=== PATIENT | male | born 1940 | race Caucasian/White ===

== ENCOUNTER 2020-07-23 16:33 | Inpatient (IN) ==
[2020-07-23] MEDS ORDERED: ASPIRIN 325 MG TABLET PO STA (16:48)
[2020-07-23 18:55] LABS: Basophils # 0.1 10*3/uL (0.0-0.2); Basophils % 0.7 % (0.0-0.8); Eosinophils # 0.1 10*3/uL (0.0-0.87); Eosinophils % 0.8 % (0.00-10.9); Hematocrit 46.7 VOL% (42.0-52.0); Hemoglobin 15.4 GM/DL (14.0-18.0); Immature Granulocytes % 0.2 %; Immature Granulocytes Absolute 0.02 #; Lymphocytes # 2.2 10*3/uL (1.4-4.0); Lymphocytes % 26.2 % (21.2-54.2); Mean Corpuscular Volume 94.9 FL (87-102); Mean Platelet Volume 11.1 FL (9.6-12.0); Monocytes % 9.5 % (1.7-12.7); Neutrophils % 62.6 % (38.7-73.9); Platelet Count 213 T/CUMM (130-400); Red Blood Count 4.92 MC/CUMM (3.8-5.5); Red Cell Distribution Width 12.1 % (9.3-17.3); White Blood Count 8.4 T/CUMM (4-12)
[2020-07-23 19:08] LABS: Albumin 3.9 G/DL (3.4-5.0); Bilirubin,Total 0.6 MG/DL (0.2-1.0); Osmolality,Calculated 279.4 MOS/KG (273-304); Potassium 3.8 MMOL/L (3.5-5.1)
[2020-07-23] MEDS ORDERED: MORPHINE 4 MG/1 ML VIAL IV PRN (20:48)
[2020-07-23] MEDS ORDERED: ACETAMINOPHEN 325 MG TABLET PO PRN (20:48)
[2020-07-23] MEDS ORDERED: ONDANSETRON 4 MG/2 ML VIAL IV PRN (20:48)
[2020-07-23] MEDS ORDERED: DEXTROSE 50% 25 GM/50 ML VIAL IV PRN (20:48)
[2020-07-23] MEDS ORDERED: GLUCAGON 1 MG VIAL IM PRN (20:48)
[2020-07-23] MEDS ORDERED: hydrALAZINE 20 MG/1 ML VIAL IV PRN (20:48)
[2020-07-23] MEDS ORDERED: NITROGLYCERIN SL 0.4 MG TABLET SL PRN (20:57)
[2020-07-23] MEDS: ENOXAPARIN 40 MG/0.4 ML SYRINGE SUBCUT SCH (22:49)
[2020-07-23] MEDS: LOSARTAN 50 MG TABLET PO SCH (23:44)
[2020-07-24] MEDS: ROSUVASTATIN 10 MG TABLET PO SCH ×2 (00:36→21:18)
[2020-07-24 00:59] LABS: Basophils # 0.1 10*3/uL (0.0-0.2); Basophils % 0.9 % (0.0-0.8); Eosinophils # 0.1 10*3/uL (0.0-0.87); Eosinophils % 1.5 % (0.00-10.9); Hematocrit 45.7 VOL% (42.0-52.0); Hemoglobin 14.6 GM/DL (14.0-18.0); Immature Granulocytes % 0.4 %; Immature Granulocytes Absolute 0.03 #; Lymphocytes # 2.3 10*3/uL (1.4-4.0); Lymphocytes % 29.8 % (21.2-54.2); Mean Corpuscular HGB Conc 31.9 GM/DL (32-36); Mean Corpuscular Volume 97.2 FL (87-102); Mean Platelet Volume 10.7 FL (9.6-12.0); Monocytes % 10.9 % (1.7-12.7); Neutrophils % 56.5 % (38.7-73.9); Platelet Count 186 T/CUMM (130-400); Red Cell Distribution Width 12.3 % (9.3-17.3); White Blood Count 7.6 T/CUMM (4-12)
[2020-07-24 01:11] LABS: Albumin 3.7 G/DL (3.4-5.0); Bilirubin,Total 0.7 MG/DL (0.2-1.0); Calcium 8.8 MG/DL (8.5-10.1); Osmolality,Calculated 279.4 MOS/KG (273-304); Potassium 4.1 MMOL/L (3.5-5.1); Risk Ratio 4.81; Total Protein 6.4 G/DL (6.4-8.3)
[2020-07-24] MEDS: LOSARTAN 50 MG TABLET PO SCH ×2 (09:34→21:12)
[2020-07-24] MEDS: PANTOPRAZOLE 40 MG TABLET PO SCH (09:34)
[2020-07-24] MEDS: hydroCHLOROthiazide 25 MG TABLET PO SCH (09:35)
[2020-07-24] MEDS: ASPIRIN CHEW 81 MG TABLET PO SCH (09:35)
[2020-07-24] MEDS: LEVOTHYROXINE 175 MCG TABLET PO SCH (09:35)
[2020-07-24] MEDS: NITROGLYCERIN 2% OINT 1 INCH/GM PACK TOP SCH ×2 (11:15→18:35)
[2020-07-24 12:06] LABS: Troponin I < 0.015 NG/ML (0.00-0.045)
[2020-07-24] MEDS ORDERED: POTASSIUM CHLORIDE RIDER 10 MEQ in PREMIX 1 EACH IV PRN (16:35)
[2020-07-24] MEDS ORDERED: MAGNESIUM SULF RIDER 2 GM in PREMIX 1 EACH IV PRN (16:35)
[2020-07-24] MEDS: ENOXAPARIN 40 MG/0.4 ML SYRINGE SUBCUT SCH (21:18)
[2020-07-25] MEDS: NITROGLYCERIN 2% OINT 1 INCH/GM PACK TOP SCH ×5 (00:03→23:20)
[2020-07-25 05:07] LABS: Basophils # 0.1 10*3/uL (0.0-0.2); Basophils % 0.9 % (0.0-0.8); Eosinophils # 0.1 10*3/uL (0.0-0.87); Eosinophils % 1.6 % (0.00-10.9); Hematocrit 44.4 VOL% (42.0-52.0); Immature Granulocytes % 0.3 %; Immature Granulocytes Absolute 0.02 #; Lymphocytes # 2.2 10*3/uL (1.4-4.0); Lymphocytes % 34.2 % (21.2-54.2); Mean Corpuscular HGB Conc 33.8 GM/DL (32-36); Mean Corpuscular Volume 92.9 FL (87-102); Platelet Count 178 T/CUMM (130-400); Red Blood Count 4.78 MC/CUMM (3.8-5.5); Red Cell Distribution Width 12.2 % (9.3-17.3); White Blood Count 6.4 T/CUMM (4-12)
[2020-07-25 05:20] LABS: Calcium 9.2 MG/DL (8.5-10.1); Osmolality,Calculated 277.7 MOS/KG (273-304); Potassium 3.9 MMOL/L (3.5-5.1)
[2020-07-25 05:28] LABS: Troponin I < 0.015 NG/ML (0.00-0.045)
[2020-07-25] MEDS: SODIUM CHLORIDE 0.9% 1,000 ML IV SCH ×2 (05:40→17:38)
[2020-07-25] MEDS: hydroCHLOROthiazide 25 MG TABLET PO SCH (09:26)
[2020-07-25] MEDS: LOSARTAN 50 MG TABLET PO SCH ×2 (09:26→21:16)
[2020-07-25] MEDS: PANTOPRAZOLE 40 MG TABLET PO SCH (09:26)
[2020-07-25] MEDS: ASPIRIN CHEW 81 MG TABLET PO SCH (09:26)
[2020-07-25] MEDS: LEVOTHYROXINE 175 MCG TABLET PO SCH (09:26)
[2020-07-25] MEDS ORDERED: DIAZEPAM 5 MG TABLET PO ONE (14:07)
[2020-07-25] MEDS ORDERED: diphenhydrAMINE CAP 25 MG CAPSULE PO ONE (14:07)
[2020-07-25] MEDS ORDERED: ASPIRIN CHEW 81 MG TABLET PO ONE (20:52)
[2020-07-25] MEDS ORDERED: POTASSIUM CHLORIDE RIDER 10 MEQ in PREMIX 1 EACH IV PRN (20:52)
[2020-07-25] MEDS ORDERED: MAGNESIUM SULF RIDER 2 GM in PREMIX 1 EACH IV PRN (20:52)
[2020-07-25] MEDS: ENOXAPARIN 40 MG/0.4 ML SYRINGE SUBCUT SCH (21:16)
[2020-07-25] MEDS: ROSUVASTATIN 10 MG TABLET PO SCH (21:16)
[2020-07-26] MEDS: SODIUM CHLORIDE 0.9% 1,000 ML IV SCH (01:19)
[2020-07-26] MEDS: NITROGLYCERIN 2% OINT 1 INCH/GM PACK TOP SCH ×3 (05:05→17:27)
[2020-07-26 05:12] LABS: Basophils # 0.1 10*3/uL (0.0-0.2); Basophils % 0.8 % (0.0-0.8); Eosinophils # 0.1 10*3/uL (0.0-0.87); Eosinophils % 1.7 % (0.00-10.9); Hematocrit 43.2 VOL% (42.0-52.0); Hemoglobin 14.7 GM/DL (14.0-18.0); Immature Granulocytes % 0.3 %; Immature Granulocytes Absolute 0.02 #; Lymphocytes # 2.3 10*3/uL (1.4-4.0); Lymphocytes % 35.5 % (21.2-54.2); Mean Corpuscular Volume 92.1 FL (87-102); Mean Platelet Volume 11.3 FL (9.6-12.0); Monocytes % 11.9 % (1.7-12.7); Neutrophils % 49.8 % (38.7-73.9); Platelet Count 171 T/CUMM (130-400); Red Blood Count 4.69 MC/CUMM (3.8-5.5); Red Cell Distribution Width 12.3 % (9.3-17.3); White Blood Count 6.4 T/CUMM (4-12)
[2020-07-26 05:29] LABS: Osmolality,Calculated 277.5 MOS/KG (273-304); Potassium 3.9 MMOL/L (3.5-5.1)
[2020-07-26] MEDS ORDERED: diphenhydrAMINE CAP 25 MG CAPSULE ONE (08:53)
[2020-07-26] MEDS ORDERED: DIAZEPAM 5 MG TABLET ONE (08:54)
[2020-07-26] MEDS: LEVOTHYROXINE 175 MCG TABLET PO SCH (08:57)
[2020-07-26] MEDS: ASPIRIN CHEW 81 MG TABLET PO SCH (08:57)
[2020-07-26] MEDS: LOSARTAN 50 MG TABLET PO SCH (08:57)
[2020-07-26] MEDS: PANTOPRAZOLE 40 MG TABLET PO SCH (08:57)
[2020-07-26] MEDS: hydroCHLOROthiazide 25 MG TABLET PO SCH (08:57)
[2020-07-26] MEDS ORDERED: diphenhydrAMINE CAP 25 MG CAPSULE PO ONE (09:00)
[2020-07-26] MEDS ORDERED: DIAZEPAM 5 MG TABLET PO ONE (09:00)
[2020-07-26] MEDS ORDERED: MIDAZOLAM 2 MG/2 ML VIAL ONE (09:54)
[2020-07-26] MEDS ORDERED: LIDOCAINE 1% 20 ML VIAL ONE (09:54)
[2020-07-26] MEDS ORDERED: fentaNYL 100 MCG/2 ML VIAL ONE (09:55)
[2020-07-26] MEDS ORDERED: HEPARIN 5,000 UNIT/1 ML VIAL ONE (10:25)
[2020-07-26] MEDS: ENOXAPARIN 40 MG/0.4 ML SYRINGE SUBCUT SCH (14:52)
[2020-07-26] MEDS: amLODIPine 2.5 MG TABLET PO SCH ×2 (14:52→20:10)
[2020-07-26] MEDS: ROSUVASTATIN 10 MG TABLET PO SCH (20:10)
[2020-07-27] MEDS: NITROGLYCERIN 2% OINT 1 INCH/GM PACK TOP SCH ×3 (00:51→13:42)
[2020-07-27 05:12] LABS: Basophils # 0.1 10*3/uL (0.0-0.2); Basophils % 0.8 % (0.0-0.8); Eosinophils # 0.1 10*3/uL (0.0-0.87); Eosinophils % 1.3 % (0.00-10.9); Hematocrit 43.5 VOL% (42.0-52.0); Hemoglobin 14.8 GM/DL (14.0-18.0); Immature Granulocytes % 0.3 %; Immature Granulocytes Absolute 0.02 #; Lymphocytes # 1.9 10*3/uL (1.4-4.0); Lymphocytes % 26.8 % (21.2-54.2); Mean Corpuscular Volume 92.2 FL (87-102); Mean Platelet Volume 11.1 FL (9.6-12.0); Monocytes % 11.6 % (1.7-12.7); Neutrophils % 59.2 % (38.7-73.9); Platelet Count 152 T/CUMM (130-400); Red Blood Count 4.72 MC/CUMM (3.8-5.5); Red Cell Distribution Width 12.1 % (9.3-17.3); White Blood Count 7.1 T/CUMM (4-12)
[2020-07-27 05:38] LABS: Calcium 8.8 MG/DL (8.5-10.1); Osmolality,Calculated 278.5 MOS/KG (273-304); Potassium 3.8 MMOL/L (3.5-5.1)
[2020-07-27] MEDS: LEVOTHYROXINE 175 MCG TABLET PO SCH (09:39)
[2020-07-27] MEDS: amLODIPine 2.5 MG TABLET PO SCH (09:39)
[2020-07-27] MEDS: ASPIRIN CHEW 81 MG TABLET PO SCH (09:39)
[2020-07-27] MEDS: hydroCHLOROthiazide 25 MG TABLET PO SCH (09:39)
[2020-07-27] MEDS: PANTOPRAZOLE 40 MG TABLET PO SCH (09:39)
[2020-07-27 12:18] VITALS: BP 164/81
[2020-07-27] MEDS ORDERED: ENOXAPARIN 40 MG/0.4 ML SYRINGE SUBCUT SCH (14:00)
[2020-07-27] MEDS ORDERED: VENLAFAXINE 75 MG TABLET PO SCH (14:16)
[2020-07-27] MEDS: ENOXAPARIN 40 MG/0.4 ML SYRINGE SUBCUT SCH (14:28)
== END 2020-07-27 15:29 | disposition home or self-care, planned readmission (81) | DRG 287 ==
LOC: N.EDINP 16:33 → N.ED 16:33 → SUATTDRO 20:48 → N.TELES 23:50 → SUATTDRO 07-25 14:25
PROVIDERS: ADMIT Emergency Medicine; ATTEND Family Medicine

== ENCOUNTER 2020-08-02 09:00 | Inpatient (IN) ==
[2020-08-21] MEDS ORDERED: GLUCAGON 1 MG VIAL IM PRN (07:19)
[2020-08-21] MEDS ORDERED: DEXTROSE 50% 25 GM/50 ML VIAL IV PRN (07:19)
[2020-08-21] MEDS ORDERED: SODIUM CHLORIDE 0.9% 1,000 ML IV SCH (07:30)
[2020-08-21] MEDS ORDERED: CLORAZEPATE 3.75 MG TABLET PO PRN (08:47)
[2020-08-21] MEDS ORDERED: ZALEPLON 5 MG CAPSULE PO PRN (08:48)
[2020-08-21] MEDS ORDERED: NITROGLYCERIN SL 0.4 MG TABLET SL PRN (09:15)
[2020-08-21] MEDS ORDERED: MORPHINE 4 MG/1 ML VIAL IV PRN (09:15)
[2020-08-21 10:09] LABS: ABG Base Excess 1.1 MMOL/L (-2.5-2.5); ABG HCO3 25.4 MMOL/L (20-26); ABG Oxygen Saturation 98.8 % (95-100); ABG PCO2 37.3 MM HG (35-48); ABG PH 7.435 (7.35-7.45); ABG TCO2 21.1 MMOL/L (23-27); Pt O2 Delivery Device Room Air
[2020-08-21 10:46] LABS: Basophils # 0.1 10*3/uL (0.0-0.2); Basophils % 0.7 % (0.0-0.8); Eosinophils # 0.1 10*3/uL (0.0-0.87); Eosinophils % 1.3 % (0.00-10.9); Hematocrit 44.6 VOL% (42.0-52.0); Hemoglobin 14.9 GM/DL (14.0-18.0); Immature Granulocytes % 0.3 %; Immature Granulocytes Absolute 0.02 #; Lymphocytes # 1.8 10*3/uL (1.4-4.0); Mean Corpuscular HGB Conc 33.4 GM/DL (32-36); Mean Corpuscular Volume 92.3 FL (87-102); Monocytes % 9.3 % (1.7-12.7); Neutrophils % 64.4 % (38.7-73.9); Platelet Count 190 T/CUMM (130-400); Red Blood Count 4.83 MC/CUMM (3.8-5.5); Red Cell Distribution Width 12.3 % (9.3-17.3); White Blood Count 7.5 T/CUMM (4-12)
[2020-08-21] MEDS: CHLORHEXIDINE 4% SOLN 118 ML BOTTLE TOP SCH ×3 (10:48→22:55)
[2020-08-21 11:04] LABS: Albumin 3.8 G/DL (3.4-5.0); Bilirubin,Total 1.2 MG/DL (0.2-1.0); Calcium 9.2 MG/DL (8.5-10.1); Osmolality,Calculated 277.7 MOS/KG (273-304); Potassium 3.6 MMOL/L (3.5-5.1)
[2020-08-21] MEDS: CHLORHEXIDINE 0.12% ORAL RINSE 60 ML BOTTLE SWISH/SPIT SCH ×2 (18:44→22:55)
[2020-08-22] MEDS ORDERED: PAPAVERINE 60 MG/2 ML VIAL ONE (04:22)
[2020-08-22] MEDS ORDERED: VANCOMYCIN 1,000 MG VIAL ONE (04:22)
[2020-08-22] MEDS ORDERED: VANCOMYCIN 500 MG VIAL ONE (04:22)
[2020-08-22] MEDS ORDERED: CEFUROXIME INJ 1,500 MG in SYRINGE 1 EACH IV ONE (05:00)
[2020-08-22] MEDS ORDERED: FAMOTIDINE 20 MG TABLET PO ONE (06:00)
[2020-08-22] MEDS ORDERED: DIAZEPAM 5 MG TABLET PO ONE (06:00)
[2020-08-22] MEDS ORDERED: HEPARIN/NACL 0.9% 2 UNITS/ML 500 ML IV ONE ×2 (06:04→15:34)
[2020-08-22] MEDS ORDERED: SEVOFLURANE 1 UNIT/15 MINUTE INH ONE (06:04)
[2020-08-22] MEDS ORDERED: SODIUM CHLORIDE 0.9% 1,000 ML IV ONE ×2 (06:08→10:47)
[2020-08-22] MEDS ORDERED: LACTATED RINGERS 1,000 ML IV ONE (06:08)
[2020-08-22] MEDS ORDERED: LIDOCAINE 2% 5 ML VIAL ONE ×3 (06:11→11:12)
[2020-08-22] MEDS ORDERED: CALCIUM CHLORIDE 1,000 MG/10 ML VIAL IV ONE ×2 (06:13→11:04)
[2020-08-22] MEDS ORDERED: VECURONIUM 10 MG VIAL IV ONE ×4 (06:13→08:38)
[2020-08-22] MEDS ORDERED: PHENYLEPHRINE DRIP 20 MG/250 ML PREMIX IV ONE (06:14)
[2020-08-22] MEDS ORDERED: AMINOCAPROIC ACID 5,000 MG/20 ML VIAL ONE ×8 (06:15→06:22)
[2020-08-22] MEDS ORDERED: SODIUM CHLORIDE 0.9% 250 ML IV ONE (06:16)
[2020-08-22] MEDS ORDERED: ETOMIDATE 40 MG/20 ML VIAL IV ONE (06:16)
[2020-08-22] MEDS ORDERED: MIDAZOLAM 10 MG/2 ML VIAL ONE ×4 (06:21→08:38)
[2020-08-22] MEDS ORDERED: SUFentanil 250 MCG/5 ML AMP ONE ×3 (06:21→10:42)
[2020-08-22] MEDS ORDERED: MINERAL OIL/PETROLATUM OPH OINT 3.5 GM TUBE ONE (06:25)
[2020-08-22] MEDS ORDERED: ePHEDrine 50 MG/ML VIAL ONE (07:01)
[2020-08-22] MEDS ORDERED: SODIUM BICARBONATE 50 MEQ/50 ML VIAL IV ONE ×2 (07:18→10:37)
[2020-08-22] MEDS ORDERED: POTASSIUM CHLORIDE RIDER 100 ML IV ONE (07:19)
[2020-08-22] MEDS ORDERED: NITROPRUSSIDE 50 MG/2 ML VIAL ONE (07:19)
[2020-08-22] MEDS ORDERED: PHENYLEPHRINE DRIP 40 MG/250 ML PREMIX IV ONE (07:19)
[2020-08-22] MEDS ORDERED: CALCIUM CHLORIDE 1,000 MG/10 ML SYRINGE IV ONE (07:19)
[2020-08-22] MEDS: CEFUROXIME INJ 1,500 MG in SYRINGE 1 EACH IV SCH ×2 (07:22→18:14)
[2020-08-22 07:30] LABS: ABG Base Excess 0.6 MMOL/L (-2.5-2.5); ABG PCO2 40.1 MM HG (35-48); ABG PH 7.408 (7.35-7.45); ABG TCO2 21.9 MMOL/L (23-27); Glucose Heart Surgery 116 MG/DL (74-106); Hematocrit Heart Surgery 41.7 PERCENT (42-52); Hemoglobin Heart Surgery 13.6 G/DL (14.0-18.0); Ionized Calcium Arterial 1.23 MMOL/L (1.21-1.46); PCO2 Patient Temp Arterial 40.1 MMHG; PH Patient Temp Arterial 7.408; Patient Temperature 37 CELCIUS; Potassium Heart/CVR 3.5 MMOL/L (3.5-5.1); Sodium Heart/CVR 140 MMOL/L (135-145)
[2020-08-22 07:42] LABS: Bilirubin,Urine Negative (Negative); Blood, Urine Negative (Negative); Glucose,Urine (UA) Negative (Negative); Ketones,Urine Negative (Negative); Mucus,Urine Occasional /LPF (Occasional); Nitrite,Urine Negative (Negative); Protein,Urine Negative; RBC,Urine 1 /HPF (0-4); Squamous Epithelial Cell,Urine Occasional /HPF (0-10); Urine Appearance CLEAR (Clear); Urine Color Yellow (Yellow); Urine Specific Gravity 1.011 (1.001-1.035); Urine Urobilinogen < 2.0 EU/DL (0.2-1.0); WBC,Urine <1 /HPF (0-6)
[2020-08-22] MEDS ORDERED: NITROGLYCERIN DRIP 50 MG/250 ML BOTTLE IV ONE ×2 (08:16→11:31)
[2020-08-22] MEDS ORDERED: diphenhydrAMINE 50 MG/1 ML VIAL ONE (08:38)
[2020-08-22 08:49] LABS: Hematocrit Heart Surgery 30.8 PERCENT (42-52); PH Patient Temp Venous 7.456; PO2 Patient Temp Venous 40.2 MM HG; Potassium Heart/CVR 4.1 MMOL/L (3.5-5.1); VBG Base Excess 0.5 MEQ/L (0-4); VBG HCO3 24.7 MEQ/L (24-28); VBG Oxygen Saturation 85.3 %; VBG PCO2 39.3 MMHG (41-51); VBG PH 7.412; VBG PO2 49.4 MMHG (17-40); VBG Total CO2 22.8 MMOL/L
[2020-08-22 09:25] LABS: Hemoglobin Heart Surgery 10.4 G/DL (14.0-18.0); PCO2 Patient Temp Venous 35.8 MM HG; PH Patient Temp Venous 7.432; PO2 Patient Temp Venous 41.1 MM HG; VBG HCO3 24.2 MEQ/L (24-28); VBG Oxygen Saturation 84.9 %; VBG PCO2 41.4 MMHG (41-51); VBG PH 7.389; VBG PO2 50.5 MMHG (17-40); VBG Total CO2 22.7 MMOL/L
[2020-08-22] MEDS ORDERED: FAMOTIDINE 20 MG/2 ML VIAL IV ONE (09:48)
[2020-08-22 09:53] LABS: Hematocrit Heart Surgery 33.7 PERCENT (42-52); Hemoglobin Heart Surgery 10.9 G/DL (14.0-18.0); PCO2 Patient Temp Venous 35.4 MM HG; PH Patient Temp Venous 7.434; PO2 Patient Temp Venous 43.1 MM HG; Potassium Heart/CVR 3.9 MMOL/L (3.5-5.1); VBG Base Excess -0.2 MEQ/L (0-4); VBG HCO3 24.1 MEQ/L (24-28); VBG Oxygen Saturation 86.5 %; VBG PCO2 40.9 MMHG (41-51); VBG PH 7.39; VBG PO2 52.9 MMHG (17-40); VBG Total CO2 22.3 MMOL/L
[2020-08-22] MEDS ORDERED: THROMBIN TOPICAL (RECOMBINANT) 5,000 UNIT VIAL TOP ONE (10:19)
[2020-08-22] MEDS ORDERED: AMIODARONE 150 MG/3 ML VIAL ONE ×2 (10:26→10:27)
[2020-08-22] MEDS ORDERED: ALBUMIN 25% 25 GM/100 ML VIAL IV ONE (10:35)
[2020-08-22] MEDS ORDERED: methylPREDNISolone SOD SUC 1,000 MG/8 ML VIAL ONE (10:36)
[2020-08-22] MEDS ORDERED: MAGNESIUM SULFATE 5 GM/10 ML VIAL IV ONE (10:36)
[2020-08-22] MEDS ORDERED: DEXTROSE 5% KCL 20 MEQ 20 MEQ/1,000 ML BAG IV ONE (10:36)
[2020-08-22] MEDS ORDERED: PROTAMINE SULFATE 250 MG/25 ML VIAL IV ONE (10:36)
[2020-08-22] MEDS ORDERED: HEPARIN 10,000 UNIT/10 ML VIAL ONE (10:36)
[2020-08-22] MEDS ORDERED: MANNITOL 100 GM/500 ML BAG IV ONE (10:36)
[2020-08-22] MEDS ORDERED: PROTAMINE SULFATE 50 MG/5 ML VIAL IV ONE (10:37)
[2020-08-22 10:51] LABS: ABG Base Excess -1.9 MMOL/L (-2.5-2.5); ABG HCO3 22.9 MMOL/L (20-26); ABG PCO2 35.1 MM HG (35-48); ABG PH 7.409 (7.35-7.45); ABG TCO2 19.8 MMOL/L (23-27); Glucose Heart Surgery 198 MG/DL (74-106); Hematocrit Heart Surgery 34.8 PERCENT (42-52); Hemoglobin Heart Surgery 11.3 G/DL (14.0-18.0); PCO2 Patient Temp Arterial 35.1 MMHG; PH Patient Temp Arterial 7.409; Patient Temperature 37 CELCIUS; Potassium Heart/CVR 3.2 MMOL/L (3.5-5.1); Sodium Heart/CVR 136 MMOL/L (135-145)
[2020-08-22] MEDS ORDERED: MIDAZOLAM 2 MG/2 ML VIAL IV PRN (11:45)
[2020-08-22] MEDS: SODIUM CHLORIDE 0.45% 1,000 ML IV SCH ×2 (11:45)
[2020-08-22] MEDS ORDERED: CALCIUM CHLORIDE 1,000 MG/10 ML SYRINGE IV PRN (11:45)
[2020-08-22] MEDS ORDERED: MORPHINE 10 MG/1 ML VIAL IV PRN (11:45)
[2020-08-22] MEDS ORDERED: VECURONIUM 10 MG VIAL IV PRN ×2 (11:45)
[2020-08-22] MEDS ORDERED: ONDANSETRON 4 MG/2 ML VIAL IV PRN (11:45)
[2020-08-22] MEDS ORDERED: CHLORHEXIDINE 4% SOLN 118 ML BOTTLE TOP PRN (11:45)
[2020-08-22] MEDS ORDERED: MIDAZOLAM 10 MG/2 ML VIAL IV PRN (11:45)
[2020-08-22] MEDS ORDERED: NITROPRUSSIDE 100 MG in DEXTROSE 5% 250 ML IV PRN (11:45)
[2020-08-22] MEDS ORDERED: MAGNESIUM SULF RIDER 4 GM in PREMIX 1 EACH IV PRN (11:45)
[2020-08-22] MEDS ORDERED: MAGNESIUM SULF RIDER 2 GM in PREMIX 1 EACH IV PRN (11:45)
[2020-08-22] MEDS ORDERED: PHENYLEPHRINE DRIP 40 MG/250 ML PREMIX IV PRN (11:45)
[2020-08-22] MEDS ORDERED: INSULIN REGULAR 100 UNIT/ML IV ONE (11:45)
[2020-08-22] MEDS ORDERED: DEXTROSE 50% 25 GM/50 ML VIAL IV PRN ×2 (11:45)
[2020-08-22] MEDS ORDERED: MORPHINE 4 MG/1 ML VIAL IV PRN (11:45)
[2020-08-22] MEDS ORDERED: ACETAMINOPHEN 650 MG SUPP RECTAL PRN (11:45)
[2020-08-22] MEDS ORDERED: NITROGLYCERIN DRIP 50 MG/250 ML BOTTLE IV PRN (12:21)
[2020-08-22 12:22] LABS: Basophils % 0.3 % (0.0-0.8); Eosinophils % 0.1 % (0.00-10.9); Hematocrit 36.8 VOL% (42.0-52.0); Hemoglobin 11.9 GM/DL (14.0-18.0); Immature Granulocytes % 0.6 %; Immature Granulocytes Absolute 0.09 #; Lymphocytes # 0.5 10*3/uL (1.4-4.0); Lymphocytes % 3.3 % (21.2-54.2); Mean Corpuscular HGB Conc 32.3 GM/DL (32-36); Mean Corpuscular Volume 95.1 FL (87-102); Mean Platelet Volume 11.2 FL (9.6-12.0); Monocytes % 5.6 % (1.7-12.7); Neutrophils % 90.1 % (38.7-73.9); Platelet Count 138 T/CUMM (130-400); Red Blood Count 3.87 MC/CUMM (3.8-5.5); Red Cell Distribution Width 12.5 % (9.3-17.3); White Blood Count 15.7 T/CUMM (4-12)
[2020-08-22 12:24] LABS: ABG Base Excess -2.5 MMOL/L (-2.5-2.5); ABG HCO3 22.4 MMOL/L (20-26); ABG Oxygen Saturation 99.7 % (95-100); ABG PCO2 35.7 MM HG (35-48); ABG PH 7.394 (7.35-7.45); ABG TCO2 19.3 MMOL/L (23-27); Glucose Heart Surgery 169 MG/DL (74-106); Hematocrit Heart Surgery 37.6 PERCENT (42-52); Hemoglobin Heart Surgery 12.2 G/DL (14.0-18.0); Potassium Heart/CVR 3.2 MMOL/L (3.5-5.1)
[2020-08-22] MEDS: POTASSIUM CHLORIDE RIDER 20 MEQ in PREMIX 1 EACH IV PRN ×6 (12:30→23:45)
[2020-08-22 12:37] LABS: INR 1.3; PT Patient Result 13.9 SECS (9.8-11.9); Partial Thromboplastin Time 31.3 SECS (23.9-33.8)
[2020-08-22 12:49] LABS: CKMB % 6.1 %
[2020-08-22 12:50] LABS: Albumin 3.1 G/DL (3.4-5.0); Calcium 8.9 MG/DL (8.5-10.1); Osmolality,Calculated 291.7 MOS/KG (273-304); Potassium 3.3 MMOL/L (3.5-5.1); Total Protein 5.1 G/DL (6.4-8.3)
[2020-08-22 12:53] LABS: Troponin I 5.65 NG/ML (0.00-0.045)
[2020-08-22 12:54] LABS: Band Neutrophils 6 % (0-10); Hypochromasia Slight; Lymphocytes 2 % (20-55); Platelet Estimate Adequate; Segmented Neutrophils 90 % (50-85); Total Cells Counted 100
[2020-08-22] MEDS: INSULIN REGULAR DRIP 100 ML IV SCH (13:06)
[2020-08-22] MEDS: CHLORHEXIDINE 0.12% ORAL RINSE 60 ML BOTTLE SWISH/SPIT SCH ×2 (13:09→21:36)
[2020-08-22] MEDS: LACTATED RINGERS 250 ML IV PRN ×6 (14:12→21:15)
[2020-08-22] MEDS: ALBUMIN 5% 12.5 GM in PREMIX 1 EACH IV PRN ×3 (14:14→20:20)
[2020-08-22 15:10] LABS: ABG Base Excess -2.1 MMOL/L (-2.5-2.5); ABG HCO3 22.7 MMOL/L (20-26); ABG PCO2 32.4 MM HG (35-48); ABG PH 7.428 (7.35-7.45); Glucose Heart Surgery 192 MG/DL (74-106); Hematocrit Heart Surgery 36.7 PERCENT (42-52); Hemoglobin Heart Surgery 11.9 G/DL (14.0-18.0); Potassium Heart/CVR 3.4 MMOL/L (3.5-5.1)
[2020-08-22 17:20] LABS: ABG Base Excess -3.5 MMOL/L (-2.5-2.5); ABG HCO3 21.5 MMOL/L (20-26); ABG Oxygen Saturation 99.6 % (95-100); ABG PCO2 40.4 MM HG (35-48); ABG PH 7.343 (7.35-7.45); ABG TCO2 19.7 MMOL/L (23-27); Glucose Heart Surgery 198 MG/DL (74-106); Hematocrit Heart Surgery 35.7 PERCENT (42-52); Hemoglobin Heart Surgery 11.6 G/DL (14.0-18.0); Potassium Heart/CVR 3.8 MMOL/L (3.5-5.1)
[2020-08-22] MEDS: KETOROLAC 30 MG/1 ML VIAL IV SCH ×2 (18:16→23:45)
[2020-08-22] MEDS: POTASSIUM CHLORIDE RIDER 10 MEQ in PREMIX 1 EACH IV PRN (18:17)
[2020-08-22] MEDS ORDERED: FUROSEMIDE 40 MG/4 ML VIAL IV PRN (18:24)
[2020-08-22] MEDS ORDERED: DEXMEDETOMIDINE 200 MCG in SODIUM CHLORIDE 0.9% 48 ML IV PRN (19:22)
[2020-08-22 20:10] LABS: ABG Base Excess -4.8 MMOL/L (-2.5-2.5); ABG HCO3 20.5 MMOL/L (20-26); ABG Oxygen Saturation 99.5 % (95-100); ABG PCO2 40.7 MM HG (35-48); ABG PH 7.321 (7.35-7.45); ABG TCO2 18.9 MMOL/L (23-27); Glucose Heart Surgery 186 MG/DL (74-106); Hematocrit Heart Surgery 35.7 PERCENT (42-52); Hemoglobin Heart Surgery 11.6 G/DL (14.0-18.0); Potassium Heart/CVR 4.1 MMOL/L (3.5-5.1)
[2020-08-22 20:35] LABS: CKMB % 5.9 %
[2020-08-22 20:40] LABS: Troponin I 5.57 NG/ML (0.00-0.045)
[2020-08-22 23:30] LABS: ABG Base Excess -5.3 MMOL/L (-2.5-2.5); ABG Oxygen Saturation 98.9 % (95-100); ABG PCO2 40.9 MM HG (35-48); ABG PH 7.311 (7.35-7.45); ABG TCO2 18.7 MMOL/L (23-27); Glucose Heart Surgery 172 MG/DL (74-106); Hematocrit Heart Surgery 33.6 PERCENT (42-52); Hemoglobin Heart Surgery 10.9 G/DL (14.0-18.0); Potassium Heart/CVR 4.1 MMOL/L (3.5-5.1)
[2020-08-22] MEDS: INSULIN REGULAR 100 UNIT/ML IV PRN (23:55)
[2020-08-23 01:58] LABS: ABG Base Excess -4.1 MMOL/L (-2.5-2.5); ABG HCO3 21.1 MMOL/L (20-26); ABG Oxygen Saturation 99.3 % (95-100); ABG PH 7.352 (7.35-7.45); ABG TCO2 19.1 MMOL/L (23-27); Glucose Heart Surgery 151 MG/DL (74-106); Hematocrit Heart Surgery 33.1 PERCENT (42-52); Hemoglobin Heart Surgery 10.7 G/DL (14.0-18.0); Potassium Heart/CVR 4.3 MMOL/L (3.5-5.1)
[2020-08-23] MEDS: INSULIN REGULAR 100 UNIT/ML IV PRN (02:06)
[2020-08-23 02:39] LABS: ABG Base Excess -2.5 MMOL/L (-2.5-2.5); ABG HCO3 22.4 MMOL/L (20-26); ABG Oxygen Saturation 99.6 % (95-100); ABG PCO2 36.3 MM HG (35-48); ABG TCO2 19.7 MMOL/L (23-27); Glucose Heart Surgery 144 MG/DL (74-106); Hematocrit Heart Surgery 34.5 PERCENT (42-52); Hemoglobin Heart Surgery 11.2 G/DL (14.0-18.0)
[2020-08-23 03:19] LABS: ABG Base Excess -2.3 MMOL/L (-2.5-2.5); ABG HCO3 22.5 MMOL/L (20-26); ABG Oxygen Saturation 99.6 % (95-100); ABG PCO2 32.1 MM HG (35-48); ABG PH 7.429 (7.35-7.45); ABG TCO2 18.9 MMOL/L (23-27); Glucose Heart Surgery 133 MG/DL (74-106); Hemoglobin Heart Surgery 11.4 G/DL (14.0-18.0); Potassium Heart/CVR 3.7 MMOL/L (3.5-5.1)
[2020-08-23 03:20] LABS: Basophils % 0.1 % (0.0-0.8); Hematocrit 33.3 VOL% (42.0-52.0); Hemoglobin 11.1 GM/DL (14.0-18.0); Immature Granulocytes % 0.7 %; Immature Granulocytes Absolute 0.12 #; Lymphocytes # 1.1 10*3/uL (1.4-4.0); Lymphocytes % 6.6 % (21.2-54.2); Mean Corpuscular HGB Conc 33.3 GM/DL (32-36); Mean Corpuscular Volume 93.3 FL (87-102); Mean Platelet Volume 11.7 FL (9.6-12.0); Monocytes % 4.8 % (1.7-12.7); Neutrophils % 87.8 % (38.7-73.9); Platelet Count 137 T/CUMM (130-400); Red Blood Count 3.57 MC/CUMM (3.8-5.5); Red Cell Distribution Width 12.6 % (9.3-17.3); White Blood Count 16.6 T/CUMM (4-12)
[2020-08-23 03:43] LABS: Albumin 3.7 G/DL (3.4-5.0); Bilirubin,Direct 0.38 MG/DL (0.0-0.20); Calcium 9.2 MG/DL (8.5-10.1); Osmolality,Calculated 285.1 MOS/KG (273-304); Potassium 3.8 MMOL/L (3.5-5.1); Total Protein 6.1 G/DL (6.4-8.3)
[2020-08-23 03:46] LABS: CKMB % 6.4 %
[2020-08-23 03:50] LABS: Troponin I 5.63 NG/ML (0.00-0.045)
[2020-08-23] MEDS: POTASSIUM CHLORIDE RIDER 20 MEQ in PREMIX 1 EACH IV PRN (03:53)
[2020-08-23] MEDS: INSULIN REGULAR DRIP 100 ML IV SCH (03:53)
[2020-08-23 04:30] LABS: Hypochromasia Slight
[2020-08-23 04:31] LABS: Microcytosis 1+; Platelet Estimate Adequate
[2020-08-23 04:42] LABS: ABG Base Excess -2.7 MMOL/L (-2.5-2.5); ABG HCO3 22.2 MMOL/L (20-26); ABG PCO2 40.3 MM HG (35-48); ABG PH 7.357 (7.35-7.45); ABG TCO2 20.4 MMOL/L (23-27); Glucose Heart Surgery 123 MG/DL (74-106)
[2020-08-23] MEDS: POTASSIUM CHLORIDE RIDER 10 MEQ in PREMIX 1 EACH IV PRN (04:51)
[2020-08-23] MEDS: CEFUROXIME INJ 1,500 MG in SYRINGE 1 EACH IV SCH ×2 (06:12→18:10)
[2020-08-23] MEDS: KETOROLAC 30 MG/1 ML VIAL IV SCH ×3 (06:13→21:41)
[2020-08-23] MEDS: CHLORHEXIDINE 0.12% ORAL RINSE 60 ML BOTTLE SWISH/SPIT SCH ×2 (09:38→21:44)
[2020-08-23] MEDS: INSULIN REGULAR 100 UNIT/ML SUBCUT SCH ×2 (09:38→13:03)
[2020-08-23] MEDS ORDERED: AMIODARONE 150 MG/3 ML VIAL ONE (10:56)
[2020-08-23] MEDS: ONDANSETRON 4 MG/2 ML VIAL IV PRN ×2 (12:59→23:39)
[2020-08-23] MEDS: SODIUM CHLORIDE 0.45% 1,000 ML IV SCH ×2 (13:02)
[2020-08-23] MEDS ORDERED: DEXTROSE 50% 25 GM/50 ML VIAL IV PRN (13:59)
[2020-08-23] MEDS ORDERED: ASPIRIN EC 325 MG TABLET PO ONE (13:59)
[2020-08-23] MEDS ORDERED: MAGNESIUM HYDROXIDE SUSP 30 ML UDCUP PO PRN (13:59)
[2020-08-23] MEDS ORDERED: oxyCODONE/ACETAMINOPHEN 5-325 MG TABLET PO PRN (13:59)
[2020-08-23] MEDS ORDERED: SODIUM CHLOR 0.45% KCL 20 MEQ 20 MEQ/1,000 ML BAG IV SCH (13:59)
[2020-08-23] MEDS ORDERED: ALUMINUM/MAGNES/SIMETH MAX STR 30 ML UDCUP PO PRN (13:59)
[2020-08-23] MEDS ORDERED: GLUCAGON 1 MG VIAL IM PRN (13:59)
[2020-08-23] MEDS ORDERED: MAGNESIUM SULF RIDER 4 GM in PREMIX 1 EACH IV PRN (13:59)
[2020-08-23] MEDS ORDERED: MAGNESIUM SULF RIDER 2 GM in PREMIX 1 EACH IV PRN (13:59)
[2020-08-23] MEDS ORDERED: ACETAMINOPHEN 325 MG TABLET PO PRN (13:59)
[2020-08-23] MEDS ORDERED: POTASSIUM CHLORIDE 20 MEQ TABLET PO PRN (13:59)
[2020-08-23 14:53] LABS: CKMB % 5.6 %
[2020-08-23 14:57] LABS: Troponin I 4.27 NG/ML (0.00-0.045)
[2020-08-23] MEDS: ROSUVASTATIN 10 MG TABLET PO SCH (21:43)
[2020-08-24 04:35] LABS: Basophils % 0.1 % (0.0-0.8); Hematocrit 31.5 VOL% (42.0-52.0); Hemoglobin 10.1 GM/DL (14.0-18.0); Immature Granulocytes % 0.7 %; Immature Granulocytes Absolute 0.17 #; Lymphocytes # 1.1 10*3/uL (1.4-4.0); Lymphocytes % 4.9 % (21.2-54.2); Mean Corpuscular HGB Conc 32.1 GM/DL (32-36); Mean Corpuscular Volume 96.3 FL (87-102); Monocytes % 5.6 % (1.7-12.7); Neutrophils % 88.7 % (38.7-73.9); Platelet Count 116 T/CUMM (130-400); Red Blood Count 3.27 MC/CUMM (3.8-5.5); Red Cell Distribution Width 13.1 % (9.3-17.3); White Blood Count 22.7 T/CUMM (4-12)
[2020-08-24] MEDS: KETOROLAC 30 MG/1 ML VIAL IV SCH ×4 (04:58→19:23)
[2020-08-24 05:00] LABS: Albumin 3.1 G/DL (3.4-5.0); Albumin 3.2 G/DL (3.4-5.0); Bilirubin,Direct 0.22 MG/DL (0.0-0.20); Bilirubin,Direct 0.24 MG/DL (0.0-0.20); Bilirubin,Indirect 0.5 MG/DL (0.0-1.0); Bilirubin,Total 0.7 MG/DL (0.2-1.0); Bilirubin,Total 1.3 MG/DL (0.2-1.0); CKMB % 4.2 %; Potassium 5.5 MMOL/L (3.5-5.1); Total Protein 5.3 G/DL (6.4-8.3); Total Protein 5.6 G/DL (6.4-8.3)
[2020-08-24 05:01] LABS: Troponin I 3.44 NG/ML (0.00-0.045)
[2020-08-24 05:02] LABS: Band Neutrophils 2 % (0-10); Lymphocytes 3 % (20-55); Segmented Neutrophils 90 % (50-85); Total Cells Counted 100
[2020-08-24 05:03] LABS: Hypochromasia Slight; Microcytosis 1+; Ovalocytes Slight; Platelet Estimate Decreased
[2020-08-24] MEDS ORDERED: FUROSEMIDE 40 MG/4 ML VIAL IV ONE (06:00)
[2020-08-24] MEDS: LEVOTHYROXINE 175 MCG TABLET PO SCH (06:17)
[2020-08-24] MEDS: FERROUS SULFATE 325 MG TABLET PO SCH (09:00)
[2020-08-24] MEDS: amLODIPine 2.5 MG TABLET PO SCH ×2 (09:01→21:13)
[2020-08-24] MEDS: PANTOPRAZOLE 40 MG TABLET PO SCH (09:02)
[2020-08-24] MEDS: hydroCHLOROthiazide 12.5 MG CAPSULE PO SCH (09:02)
[2020-08-24] MEDS: CHLORHEXIDINE 0.12% ORAL RINSE 60 ML BOTTLE SWISH/SPIT SCH ×2 (09:03→21:16)
[2020-08-24] MEDS: ASPIRIN EC 325 MG TABLET PO SCH (09:07)
[2020-08-24] MEDS: DOCUSATE SODIUM 100 MG CAPSULE PO SCH (09:07)
[2020-08-24] MEDS ORDERED: KETOROLAC 30 MG/1 ML VIAL IV ONE (13:22)
[2020-08-24] MEDS ORDERED: BISACODYL 5 MG TABLET PO ONE (13:24)
[2020-08-24] MEDS ORDERED: BISACODYL 5 MG TABLET PO PRN (13:24)
[2020-08-24] MEDS ORDERED: SIMETHICONE CHEW 125 MG TABLET PO SCH (13:30)
[2020-08-24] MEDS: ASCORBIC ACID 500 MG TABLET PO SCH ×2 (14:34→21:13)
[2020-08-24 16:52] LABS: Calcium 9.3 MG/DL (8.5-10.1); Osmolality,Calculated 289.3 MOS/KG (273-304); Potassium 4.4 MMOL/L (3.5-5.1)
[2020-08-24] MEDS: ONDANSETRON 4 MG/2 ML VIAL IV PRN (19:57)
[2020-08-24] MEDS: ROSUVASTATIN 10 MG TABLET PO SCH (21:13)
[2020-08-25] MEDS: KETOROLAC 30 MG/1 ML VIAL IV SCH ×4 (00:04→17:35)
[2020-08-25] MEDS: LEVOTHYROXINE 175 MCG TABLET PO SCH (06:24)
[2020-08-25 06:56] LABS: Basophils % 0.1 % (0.0-0.8); Hematocrit 30.6 VOL% (42.0-52.0); Hemoglobin 9.9 GM/DL (14.0-18.0); Immature Granulocytes % 0.9 %; Immature Granulocytes Absolute 0.15 #; Lymphocytes # 1.4 10*3/uL (1.4-4.0); Lymphocytes % 8.3 % (21.2-54.2); Mean Corpuscular HGB Conc 32.4 GM/DL (32-36); Mean Corpuscular Volume 95.9 FL (87-102); Mean Platelet Volume 12.6 FL (9.6-12.0); Monocytes % 9.3 % (1.7-12.7); Neutrophils % 81.4 % (38.7-73.9); Platelet Count 121 T/CUMM (130-400); Red Blood Count 3.19 MC/CUMM (3.8-5.5); Red Cell Distribution Width 12.9 % (9.3-17.3); White Blood Count 17.3 T/CUMM (4-12)
[2020-08-25 07:21] LABS: Bilirubin,Direct 0.2 MG/DL (0.0-0.20); Bilirubin,Total 0.9 MG/DL (0.2-1.0); Calcium 9.1 MG/DL (8.5-10.1); Osmolality,Calculated 289.3 MOS/KG (273-304); Total Protein 5.6 G/DL (6.4-8.3)
[2020-08-25 07:24] LABS: Alanine Aminotransferase 26 U/L (16-61); Albumin 3.1 G/DL (3.4-5.0); Alkaline Phosphatase 46 U/L (45-117); Aspartate Amino Transferase 25 U/L (0-37); Bilirubin,Indirect 1.6 MG/DL (0.0-1.0); Total Protein 5.5 G/DL (6.4-8.3)
[2020-08-25] MEDS: ASCORBIC ACID 500 MG TABLET PO SCH ×2 (08:33→21:25)
[2020-08-25] MEDS: DOCUSATE SODIUM 100 MG CAPSULE PO SCH (08:33)
[2020-08-25] MEDS: PANTOPRAZOLE 40 MG TABLET PO SCH (08:34)
[2020-08-25] MEDS: hydroCHLOROthiazide 12.5 MG CAPSULE PO SCH (08:34)
[2020-08-25] MEDS: ASPIRIN EC 325 MG TABLET PO SCH (08:35)
[2020-08-25] MEDS: amLODIPine 2.5 MG TABLET PO SCH ×2 (08:35→21:24)
[2020-08-25] MEDS: CHLORHEXIDINE 0.12% ORAL RINSE 60 ML BOTTLE SWISH/SPIT SCH ×2 (08:39→21:25)
[2020-08-25] MEDS ORDERED: AMIODARONE INJ 150 MG in DEXTROSE 5% 100 ML IV ONE (10:35)
[2020-08-25] MEDS ORDERED: AMIODARONE INJ 450 MG in DEXTROSE 5% 241 ML IV SCH ×2 (11:00→17:00)
[2020-08-25] MEDS: FERROUS SULFATE 325 MG TABLET PO SCH (11:08)
[2020-08-25] MEDS: ONDANSETRON 4 MG/2 ML VIAL IV PRN ×2 (17:27→21:24)
[2020-08-25] MEDS: ROSUVASTATIN 10 MG TABLET PO SCH (21:25)
[2020-08-25] MEDS: LACTULOSE 20 GM/30 ML UDCUP PO PRN (21:31)
[2020-08-25] MEDS: BISOPROLOL 5 MG TABLET PO SCH (23:20)
[2020-08-26] MEDS: KETOROLAC 30 MG/1 ML VIAL IV SCH ×5 (00:19→23:38)
[2020-08-26] MEDS: ZALEPLON 5 MG CAPSULE PO PRN (00:19)
[2020-08-26 06:00] LABS: Calcium 8.7 MG/DL (8.5-10.1); Osmolality,Calculated 285.5 MOS/KG (273-304); Potassium 4.1 MMOL/L (3.5-5.1)
[2020-08-26 06:02] LABS: Basophils % 0.1 % (0.0-0.8); Eosinophils # 0.1 10*3/uL (0.0-0.87); Eosinophils % 0.5 % (0.00-10.9); Hematocrit 33.3 VOL% (42.0-52.0); Hemoglobin 10.7 GM/DL (14.0-18.0); Immature Granulocytes % 0.5 %; Immature Granulocytes Absolute 0.08 #; Lymphocytes # 2.3 10*3/uL (1.4-4.0); Lymphocytes % 15.5 % (21.2-54.2); Mean Corpuscular HGB Conc 32.1 GM/DL (32-36); Mean Corpuscular Volume 96.2 FL (87-102); Mean Platelet Volume 12.3 FL (9.6-12.0); Monocytes % 11.5 % (1.7-12.7); Neutrophils % 71.9 % (38.7-73.9); Platelet Count 143 T/CUMM (130-400); Red Blood Count 3.46 MC/CUMM (3.8-5.5); Red Cell Distribution Width 12.9 % (9.3-17.3); White Blood Count 14.6 T/CUMM (4-12)
[2020-08-26 06:07] LABS: Alanine Aminotransferase 44 U/L (16-61); Albumin 3.1 G/DL (3.4-5.0); Alkaline Phosphatase 58 U/L (45-117); Aspartate Amino Transferase 35 U/L (0-37); Bilirubin,Indirect 1.4 MG/DL (0.0-1.0); Blood Urea Nitrogen 34 MG/DL (7-18); Calcium 8.9 MG/DL (8.5-10.1); Carbon Dioxide 28 MMOL/L (21-32); Estimated Glom Filtration Rate 96 ML/MIN; Glucose 108 MG/DL (74-106); Osmolality,Calculated 285.5 MOS/KG (273-304); Potassium 4.2 MMOL/L (3.5-5.1); Sodium 139 MMOL/L (136-145); Total Protein 5.3 G/DL (6.4-8.3)
[2020-08-26] MEDS: LEVOTHYROXINE 175 MCG TABLET PO SCH (06:46)
[2020-08-26] MEDS: ASPIRIN EC 81 MG TABLET PO SCH (10:39)
[2020-08-26] MEDS: DOCUSATE SODIUM 100 MG CAPSULE PO SCH (10:39)
[2020-08-26] MEDS: AMIODARONE 200 MG TABLET PO SCH ×2 (10:43→21:27)
[2020-08-26] MEDS: APIXABAN 5 MG TABLET PO SCH ×2 (10:43→21:27)
[2020-08-26] MEDS: BISOPROLOL 5 MG TABLET PO SCH ×2 (10:47→21:52)
[2020-08-26] MEDS: FERROUS SULFATE 325 MG TABLET PO SCH (10:48)
[2020-08-26] MEDS: PANTOPRAZOLE 40 MG TABLET PO SCH (10:50)
[2020-08-26] MEDS: POLYETHYLENE GLYCOL POWDER 17 GM PACK PO SCH (10:51)
[2020-08-26] MEDS: CHLORHEXIDINE 0.12% ORAL RINSE 60 ML BOTTLE SWISH/SPIT SCH ×2 (10:53→21:27)
[2020-08-26] MEDS: ONDANSETRON 4 MG/2 ML VIAL IV PRN (11:21)
[2020-08-26] MEDS: ASCORBIC ACID 500 MG TABLET PO SCH ×2 (12:40→21:27)
[2020-08-26] MEDS: ROSUVASTATIN 10 MG TABLET PO SCH (21:27)
[2020-08-26] MEDS: LACTULOSE 20 GM/30 ML UDCUP PO PRN (21:39)
[2020-08-27 04:34] LABS: Basophils % 0.2 % (0.0-0.8); Eosinophils # 0.1 10*3/uL (0.0-0.87); Eosinophils % 1.1 % (0.00-10.9); Hematocrit 30.3 VOL% (42.0-52.0); Hemoglobin 9.9 GM/DL (14.0-18.0); Immature Granulocytes % 0.6 %; Immature Granulocytes Absolute 0.07 #; Lymphocytes # 1.3 10*3/uL (1.4-4.0); Lymphocytes % 10.3 % (21.2-54.2); Mean Corpuscular HGB Conc 32.7 GM/DL (32-36); Mean Corpuscular Volume 95.9 FL (87-102); Mean Platelet Volume 12.1 FL (9.6-12.0); Neutrophils % 77.8 % (38.7-73.9); Platelet Count 139 T/CUMM (130-400); Red Blood Count 3.16 MC/CUMM (3.8-5.5); Red Cell Distribution Width 12.7 % (9.3-17.3); White Blood Count 12.2 T/CUMM (4-12)
[2020-08-27 05:02] LABS: Calcium 8.5 MG/DL (8.5-10.1); Osmolality,Calculated 287.4 MOS/KG (273-304); Potassium 3.9 MMOL/L (3.5-5.1)
[2020-08-27] MEDS: ONDANSETRON 4 MG/2 ML VIAL IV PRN (05:04)
[2020-08-27 05:08] LABS: Alanine Aminotransferase 38 U/L (16-61); Albumin 2.8 G/DL (3.4-5.0); Alkaline Phosphatase 61 U/L (45-117); Aspartate Amino Transferase 24 U/L (0-37); Bilirubin,Indirect 1.5 MG/DL (0.0-1.0); Blood Urea Nitrogen 37 MG/DL (7-18); Calcium 8.6 MG/DL (8.5-10.1); Carbon Dioxide 28 MMOL/L (21-32); Estimated Glom Filtration Rate 84 ML/MIN; Glucose 105 MG/DL (74-106); Osmolality,Calculated 289.3 MOS/KG (273-304); Potassium 3.9 MMOL/L (3.5-5.1); Sodium 141 MMOL/L (136-145); Total Protein 5.3 G/DL (6.4-8.3)
[2020-08-27] MEDS: KETOROLAC 30 MG/1 ML VIAL IV SCH ×2 (06:11→12:15)
[2020-08-27] MEDS: LEVOTHYROXINE 175 MCG TABLET PO SCH (06:52)
[2020-08-27] MEDS: DOCUSATE SODIUM 100 MG CAPSULE PO SCH (09:43)
[2020-08-27] MEDS: BISOPROLOL 5 MG TABLET PO SCH (09:45)
[2020-08-27] MEDS: FERROUS SULFATE 325 MG TABLET PO SCH (09:45)
[2020-08-27] MEDS: ASCORBIC ACID 500 MG TABLET PO SCH ×2 (09:46→21:12)
[2020-08-27] MEDS: ASPIRIN EC 81 MG TABLET PO SCH (09:46)
[2020-08-27] MEDS: APIXABAN 5 MG TABLET PO SCH ×2 (09:47→21:12)
[2020-08-27] MEDS: AMIODARONE 200 MG TABLET PO SCH ×4 (09:47→21:12)
[2020-08-27] MEDS: PANTOPRAZOLE 40 MG TABLET PO SCH (09:47)
[2020-08-27] MEDS: POLYETHYLENE GLYCOL POWDER 17 GM PACK PO SCH (09:48)
[2020-08-27] MEDS: CHLORHEXIDINE 0.12% ORAL RINSE 60 ML BOTTLE SWISH/SPIT SCH ×2 (09:48→21:13)
[2020-08-27] MEDS: ROSUVASTATIN 10 MG TABLET PO SCH (21:12)
[2020-08-27] MEDS: ZALEPLON 5 MG CAPSULE PO PRN (21:13)
[2020-08-28 05:53] LABS: Basophils % 0.3 % (0.0-0.8); Eosinophils # 0.3 10*3/uL (0.0-0.87); Eosinophils % 2.8 % (0.00-10.9); Hematocrit 28.5 VOL% (42.0-52.0); Hemoglobin 9.6 GM/DL (14.0-18.0); Immature Granulocytes % 0.8 %; Immature Granulocytes Absolute 0.08 #; Lymphocytes # 1.5 10*3/uL (1.4-4.0); Lymphocytes % 14.8 % (21.2-54.2); Mean Corpuscular HGB Conc 33.7 GM/DL (32-36); Mean Corpuscular Volume 93.4 FL (87-102); Mean Platelet Volume 12.2 FL (9.6-12.0); Monocytes % 9.2 % (1.7-12.7); Neutrophils % 72.1 % (38.7-73.9); Platelet Count 141 T/CUMM (130-400); Red Blood Count 3.05 MC/CUMM (3.8-5.5); Red Cell Distribution Width 12.8 % (9.3-17.3); White Blood Count 10.2 T/CUMM (4-12)
[2020-08-28] MEDS: LEVOTHYROXINE 175 MCG TABLET PO SCH (06:04)
[2020-08-28 06:08] LABS: Alanine Aminotransferase 32 U/L (16-61); Albumin 2.6 G/DL (3.4-5.0); Alkaline Phosphatase 58 U/L (45-117); Aspartate Amino Transferase 19 U/L (0-37); Bilirubin,Indirect 1.1 MG/DL (0.0-1.0); Blood Urea Nitrogen 30 MG/DL (7-18); Calcium 8.4 MG/DL (8.5-10.1); Carbon Dioxide 28 MMOL/L (21-32); Estimated Glom Filtration Rate 96 ML/MIN; Glucose 94 MG/DL (74-106); Osmolality,Calculated 286.3 MOS/KG (273-304); Potassium 3.8 MMOL/L (3.5-5.1); Sodium 141 MMOL/L (136-145); Total Protein 5.3 G/DL (6.4-8.3)
[2020-08-28 06:09] LABS: Troponin I 0.678 NG/ML (0.00-0.045)
[2020-08-28] MEDS: AMIODARONE 200 MG TABLET PO SCH ×2 (09:57→20:19)
[2020-08-28] MEDS: PANTOPRAZOLE 40 MG TABLET PO SCH (09:57)
[2020-08-28] MEDS: ASCORBIC ACID 500 MG TABLET PO SCH ×2 (09:57→20:20)
[2020-08-28] MEDS: FERROUS SULFATE 325 MG TABLET PO SCH (09:57)
[2020-08-28] MEDS: ASPIRIN EC 81 MG TABLET PO SCH (09:57)
[2020-08-28] MEDS: DOCUSATE SODIUM 100 MG CAPSULE PO SCH (09:58)
[2020-08-28] MEDS: APIXABAN 5 MG TABLET PO SCH ×2 (09:58→20:19)
[2020-08-28] MEDS: BISOPROLOL 5 MG TABLET PO SCH (10:03)
[2020-08-28] MEDS: POLYETHYLENE GLYCOL POWDER 17 GM PACK PO SCH ×2 (10:03→11:28)
[2020-08-28] MEDS: CHLORHEXIDINE 0.12% ORAL RINSE 60 ML BOTTLE SWISH/SPIT SCH ×2 (10:03→20:21)
[2020-08-28] MEDS: LACTULOSE 20 GM/30 ML UDCUP PO PRN (11:31)
[2020-08-28] MEDS: ROSUVASTATIN 10 MG TABLET PO SCH (20:19)
[2020-08-28] MEDS: ZALEPLON 5 MG CAPSULE PO PRN (20:20)
[2020-08-29] MEDS: LEVOTHYROXINE 175 MCG TABLET PO SCH (06:00)
[2020-08-29 06:32] LABS: Basophils % 0.3 % (0.0-0.8); Eosinophils # 0.3 10*3/uL (0.0-0.87); Eosinophils % 3.4 % (0.00-10.9); Hematocrit 27.5 VOL% (42.0-52.0); Hemoglobin 9.3 GM/DL (14.0-18.0); Immature Granulocytes % 1.6 %; Immature Granulocytes Absolute 0.15 #; Lymphocytes # 1.5 10*3/uL (1.4-4.0); Lymphocytes % 16.6 % (21.2-54.2); Mean Corpuscular HGB Conc 33.8 GM/DL (32-36); Mean Corpuscular Volume 92.6 FL (87-102); Monocytes % 9.9 % (1.7-12.7); Neutrophils % 68.2 % (38.7-73.9); Platelet Count 156 T/CUMM (130-400); Red Blood Count 2.97 MC/CUMM (3.8-5.5); Red Cell Distribution Width 12.9 % (9.3-17.3); White Blood Count 9.2 T/CUMM (4-12)
[2020-08-29 07:54] LABS: Calcium 8.3 MG/DL (8.5-10.1); Potassium 3.8 MMOL/L (3.5-5.1)
[2020-08-29 08:46] VITALS: BP 108/55
[2020-08-29] MEDS: BISOPROLOL 5 MG TABLET PO SCH (09:10)
[2020-08-29] MEDS: PANTOPRAZOLE 40 MG TABLET PO SCH (09:11)
[2020-08-29] MEDS: ASCORBIC ACID 500 MG TABLET PO SCH (09:11)
[2020-08-29] MEDS: ASPIRIN EC 81 MG TABLET PO SCH (09:11)
[2020-08-29] MEDS: DOCUSATE SODIUM 100 MG CAPSULE PO SCH (09:12)
[2020-08-29] MEDS: AMIODARONE 200 MG TABLET PO SCH (09:12)
[2020-08-29] MEDS: APIXABAN 5 MG TABLET PO SCH (09:12)
[2020-08-29] MEDS: FERROUS SULFATE 325 MG TABLET PO SCH (09:12)
[2020-08-29] MEDS: POLYETHYLENE GLYCOL POWDER 17 GM PACK PO SCH (09:13)
[2020-08-29] MEDS: CHLORHEXIDINE 0.12% ORAL RINSE 60 ML BOTTLE SWISH/SPIT SCH (09:13)
== END 2020-08-29 12:05 | disposition home health service (06) | DRG 236 ==
LOC: N.4E 08-21 08:54 → N.CVR 08-22 11:15 → N.ICU 08-23 14:40 → N.TELES 08-23 20:03 → N.ICU 08-23 20:17 → N.TELES 08-24 07:06